=== PATIENT | female | born 1995 | race Caucasian/White ===

== ENCOUNTER 2016-07-13 09:23 | Emergency (ER) ==
[2016-07-13 09:26] VITALS: BP 97/61; TEMP 97.3; BMI 27.4
[2016-07-13] MEDS ORDERED: PHENERGAN TAB PO STA (09:41)
[2016-07-13 09:53] LABS: BILIRUBIN,URINE Negative (NEGATIVE); KETONES,URINE 1+ (NEGATIVE); LEUKOCYTE ESTERASE ,URINE Negative (NEGATIVE); NITRITE,URINE Negative (NEGATIVE); PROTEIN,URINE Negative (NEGATIVE); URINE, BLOOD Negative (NEGATIVE)
[2016-07-13 09:55] LABS: ADD URINE MICROSCOPIC NO; URINE PREGNANCY INTERNAL QC INTERNAL QC VALID
[2016-07-13 09:57] LABS: BASOPHILS % (AUTO) 0.5 % (0.0-3.0); EOSINOPHILS # (AUTO) 0.2 K/ul (0.0-0.7); EOSINOPHILS % (AUTO) 3.2 % (0.0-7.0); HEMATOCRIT 40.1 % (37.0-47.0); HEMOGLOBIN 12.8 g/dl (12.0-16.0); IMMATURE GRANULOCYTE % (AUTO) 0.5 % (0.0-5.0); LYMPHOCYTES # (AUTO) 2.1 K/uL (0.60-3.4); MEAN CORPUSCULAR HEMOGLOBIN 28.4 pg (27.0-31.0); MEAN CORPUSCULAR HGB CONC 31.9 (31.8-35.4); MEAN CORPUSCULAR VOLUME 88.9 fl (81.0-99.0); MONOCYTES # (AUTO) 0.9 K/uL (0.4-2.0); MONOCYTES % (AUTO) 14.3 (0-10); NEUTROPHILS # (AUTO) 2.8 K/ul (2.0-6.9); NEUTROPHILS % (AUTO) 46.5; PLATELET COUNT 252 10^3/uL (140-440); RED BLOOD COUNT 4.51 10^6/ul (4.20-5.40); WHITE BLOOD COUNT 5.94 K/ul (4.6-10.2)
[2016-07-13 10:08] LABS: H. PYLORI ANTIBODY NEGATIVE (NEGATIVE); H.PYLORI INTERNAL QC INTERNAL QC VALID
[2016-07-13 10:16] LABS: ALBUMIN 3.9 g/dL (3.7-5.6); ALBUMIN/GLOBULIN RATIO 1.34; BILIRUBIN,TOTAL 0.28 mg/dL (0.60-1.40); BUN/CREATININE RATIO 13.88; CALCIUM 8.9 mg/dL (8.2-10.2); CREATININE 0.72 mg/dL (0.60-1.30); TOTAL PROTEIN 6.8 g/dL (6.4-8.2)
--- NOTE | 2016-07-13 10:33 | ED.PDOC ---
General ED Provider: Dr. YVROSE LARRY JR Chief Complaint: Nausea/Vomiting Stated Complaint: states has been nauseated and vomiting for 2 weeks. diarrhea x 3. with epigastric abd pain. [ End ]97.3 92 18 97% 97/61 hx vertigo diarrhea aching Time Seen by Physician: 09:35 Mode of Arrival: Walk-In Information Source: Patient Exam Limitations: No limitations Nursing and Triage Documentation Reviewed and Agree: No Review of Systems - Review Of Systems Constitutional: Reports: No symptoms Eyes: Reports: No symptoms Ears, Nose, Mouth, Throat: Reports: No symptoms Respiratory: Reports: No symptoms Cardiac: Reports: No symptoms GI: Reports: Abdominal pain, Diarrhea, Nausea, Vomiting : Reports: No symptoms Musculoskeletal: Reports: No symptoms Skin: Reports: No symptoms Neurological: Reports: No symptoms Endocrine: Reports: No symptoms Hematologic/Lymphatic: Reports: No symptoms All Other Systems: Other Past Medical History - Past Medical History Previously Healthy: Yes Endocrine: Reports: None Cardiovascular: Reports: None Respiratory: Reports: None Hematological: Reports: None Gastrointestinal: Reports: None Genitourinary: Reports: None Neuro/Psych: Reports: None Musculoskeletal: Reports: None Cancer: Reports: None Last Menstrual Period: jun.04 - Surgical History General Surgical History: Reports: None - Family History Family History: Reports: None - Social History Smoking Status: Current some day smoker Hx Substance Use: No Alcohol Screening: None Physical Exam - Physical Exam Appearance: Well-appearing, Obese Pain Distress: Mild Eyes: KATHIA, EOMI, Conjunctiva clear Neck: Supple Respiratory: Airway patent, Breath sounds clear, Breath sounds equal, Respirations nonlabored Cardiovascular: RRR, Pulses normal, No rub, No murmur GI/: Soft, Nontender (no pain elicited), No masses, Bowel sounds normal, No Organomegaly Musculoskeletal: Normal strength, ROM intact, No edema, No calf tenderness Skin: Warm, Dry, Normal color Neurological: Sensation intact, Motor intact, Reflexes intact, Cranial nerves intact, Alert, Oriented Psychiatric: Affect appropriate, Mood appropriate Critical Care Note - Critical Care Note Total Time (mins): 0 Course - Course Hematology/Chemistry: 07/13/16 09:35 07/13/16 09:35 Orders, Labs, Meds: Lab Review 07/13/16 07/13/16 09:35 09:47 WBC 5.94 RBC 4.51 Hgb 12.8 Hct 40.1 MCV 88.9 MCH 28.4 MCHC 31.9 RDW Coeff of Adrianna 13.5 Plt Count 252 Immature Gran % (Auto) 0.5 Neut % (Auto) 46.5 Lymph % (Auto) 35.0 Morrill % (Auto) 14.3 H Eos % (Auto) 3.2 Baso % (Auto) 0.5 Immature Gran # (Auto) 0.0 Neut # 2.8 Lymph # 2.1 Morrill # 0.9 Eos # 0.2 Baso # 0.0 Sodium 139 Potassium 4.0 Chloride 106 Carbon Dioxide 25 Anion Gap 12.0 BUN 10 Creatinine 0.72 Estimated GFR (MDRD) 104.00 BUN/Creatinine Ratio 13.88 Glucose 87 Calcium 8.9 Total Bilirubin 0.28 L AST 24 ALT 20 Alkaline Phosphatase 62 Total Protein 6.8 Albumin 3.9 Globulin 2.9 Albumin/Globulin Ratio 1.34 Amylase 35 Lipase 15 Urine Color Yellow Urine Clarity Clear Urine pH 6.0 Ur Specific [place] >=1.030 Urine Protein Negative Urine Glucose (UA) Negative Urine Ketones 1+ Urine Blood Negative Urine Nitrite Negative Urine Bilirubin Negative Urine Urobilinogen 1.0 Ur Leukocyte Esterase Negative Urine Test Negative H. pylori IgG Antibody Negative Orders Category Date Time Status AMYLASE Stat LAB 07/13/16 09:35 Completed CBC W/ AUTO DIFF Stat LAB 07/13/16 09:35 Completed COMPREHENSIVE METABOLIC PANEL Stat LAB 07/13/16 09:35 Completed H. PYLORI SCREEN Stat LAB 07/13/16 09:35 Completed LIPASE Stat LAB 07/13/16 09:35 Completed URINALYSIS C & S IF INDICATED Stat LAB 07/13/16 09:47 Completed URINE Stat LAB 07/13/16 09:47 Completed Promethazine HCl [Phenergan Tab] MEDS 07/13/16 09:41 Discontinued 25 mg PO ONCE STA Medications Discontinued Medications Generic Name Dose Route Start Last Admin Trade Name Freq PRN Reason Stop Dose Admin Promethazine HCl 25 mg 07/13/16 09:41 07/13/16 10:02 Phenergan Tab PO 07/13/16 09:42 25 mg ONCE STA Administration Vital Signs: Temp Pulse Resp BP Pulse Ox 07/13/16 09:23 97.3 F L 92 H 18 97/61 97 Departure - Departure Time of Disposition: 11:12 Disposition: HOME SELF-CARE Discharge Problem: Gastroenteritis Instructions: Acute Nausea and Vomiting (ED) Condition: Good Pt referred to PMD for follow-up: Yes Additional Instructions: Urine is concentrated but no evidence of dehydration on labs increase clear liquids- to eight to ten 8 ounce cups a day no solids for 12 hours after vomiting phenergan for nausea peptobismol up to 8 doses a day for loose stools return if fever over 101.0 or if not voiding three or more times each day Prescriptions: Promethazine HCl [Phenergan Tab] 25 mg PO QID PRN #12 tablet PRN Reason: Nausea / Vomiting Allergies/Adverse Reactions: Allergies amoxicillin [Amoxicillin] Allergy (Mild, Verified 07/13/16 09:27) nausea red dye Adverse Reaction (Verified 07/13/16 09:27) Home Medications: Ambulatory Orders Promethazine HCl [Phenergan Tab] 25 mg PO QID PRN #12 tablet 07/13/16
== END 2016-07-13 11:53 | disposition home or self-care (01) ==
LOC: ED 09:23
DX: K52.9 Noninfective gastroenteritis and colitis, unspecified (principal); F17.210 Nicotine dependence, cigarettes, uncomplicated
CPT/HCPCS: 36415; 80053; 81001; 81025; 82150; 83690; 85025; 86677; 99283

== ENCOUNTER 2016-08-22 11:54 | Emergency (ER) ==
[2016-08-22 11:55] VITALS: BMI 27.4
[2016-08-22 12:00] VITALS: BP 138/71; TEMP 98.4
--- NOTE | 2016-08-22 12:58 | ED.PDOC ---
General ED Provider: Dr. YVROSE LARRY JR Chief Complaint: Bite Stated Complaint: bite her last night back of left thigh. reached back and hit the area and looked hand a mosquito. has bruised.[End]98.4 91 20 98 138/71 01/08 Time Seen by Physician: 13:00 Mode of Arrival: Walk-In Information Source: Patient Exam Limitations: No limitations Nursing and Triage Documentation Reviewed and Agree: No Review of Systems - Review Of Systems Constitutional: Reports: No symptoms Eyes: Reports: No symptoms Ears, Nose, Mouth, Throat: Reports: No symptoms Respiratory: Reports: No symptoms Cardiac: Reports: No symptoms GI: Reports: No symptoms : Reports: No symptoms Musculoskeletal: Reports: No symptoms Skin: Reports: Bruising Neurological: Reports: Other (VERTIGO) Endocrine: Reports: No symptoms Hematologic/Lymphatic: Reports: No symptoms All Other Systems: Other Past Medical History - Past Medical History Previously Healthy: Yes Endocrine: Reports: None Cardiovascular: Reports: None Respiratory: Reports: None Hematological: Reports: None Gastrointestinal: Reports: None Genitourinary: Reports: None Neuro/Psych: Reports: None Musculoskeletal: Reports: None Cancer: Reports: None Last Menstrual Period: 1 week late - Surgical History General Surgical History: Reports: None - Family History Family History: Reports: None - Social History Smoking Status: Current some day smoker Hx Substance Use: No Alcohol Screening: None Physical Exam - Physical Exam Appearance: Well-appearing Pain Distress: Mild Neck: Supple Respiratory: Airway patent Skin: Normal color (2x8cm target lesion consitent with venoud injury slightly tender) Neurological: Sensation intact, Motor intact, Reflexes intact, Cranial nerves intact, Alert, Oriented Critical Care Note - Critical Care Note Total Time (mins): 0 Course - Course Vital Signs: Temp Pulse Resp BP Pulse Ox 08/22/16 11:55 98.4 F 91 H 20 138/71 98 Departure - Departure Time of Disposition: 12:56 Disposition: HOME SELF-CARE Discharge Problem: Insect bite (nonvenomous), left thigh, initial encounter Instructions: Insect Bite or Sting (ED), Contusion in Adults (ED) Condition: Good Pt referred to PMD for follow-up: Yes Additional Instructions: unusual injury should heal without problems recheck if fever , increasing swelling over two days drainage or redness(signs of infection) may use ice may use Tylenol for pain avid NSAIDS pressure to area from cloth roll willl help Allergies/Adverse Reactions: Allergies amoxicillin [Amoxicillin] Allergy (Mild, Verified 08/22/16 11:59) nausea red dye Adverse Reaction (Verified 08/22/16 11:59) Home Medications: Ambulatory Orders 1 [No Reported Medications] 08/22/16
== END 2016-08-22 13:20 | disposition home or self-care (01) ==
LOC: ED 11:54
DX: S70.362A Insect bite (nonvenomous), left thigh, initial encounter (principal); S70.12XA Contusion of left thigh, initial encounter; W57.XXXA Bitten or stung by nonvenomous insect and other nonvenomous arthropods, initial encounter; F17.210 Nicotine dependence, cigarettes, uncomplicated
CPT/HCPCS: 99282

== ENCOUNTER 2016-08-23 01:09 | Emergency (ER) ==
[2016-08-23 01:10] VITALS: BMI 27.4
[2016-08-23 01:20] VITALS: BP 118/75; TEMP 98.4
[2016-08-23] MEDS ORDERED: BACTRIM DS 800/160 MG PO STA (01:38)
[2016-08-23] MEDS ORDERED: MOTRIN PO STA (01:38)
--- NOTE | 2016-08-23 01:38 | ED.PDOC ---
General ED Provider: Dr. NEYDA MONTIEL Chief Complaint: Bite Stated Complaint: Patient noted a small bruzie / insect bite this morning. was seen in the ER apparently has enlarged. now worried about it. Has some pain and has not taken anything for the pain. Time Seen by Physician: 01:35 Mode of Arrival: Walk-In Information Source: Patient Exam Limitations: No limitations Seen Within Last 72 Hours for Same Complaint By: ED Nursing and Triage Documentation Reviewed and Agree: Yes Skin Complaint Exam - Skin Rash/Itching Complaint/Exam Onset/Duration: 1 day Symptoms Are: Still present Location: Left inner thigh Potential Exposures: Reports: Unknown Prior Treatment: none Aggravating: Reports: None Alleviating: Reports: None Skin Findings: Present: Normal findings Body Picture: 1 - 5 cm diabeter slightly raised Bruize. Differential Diagnoses: Contact Dermatitis, Other (insect bite ) Review of Systems - Review Of Systems Constitutional: Reports: No symptoms Eyes: Reports: No symptoms Ears, Nose, Mouth, Throat: Reports: No symptoms Respiratory: Reports: No symptoms Cardiac: Reports: No symptoms GI: Reports: No symptoms : Reports: No symptoms Musculoskeletal: Reports: No symptoms Skin: Reports: Lesions, Rash Neurological: Reports: Anxiety Endocrine: Reports: No symptoms Hematologic/Lymphatic: Reports: No symptoms All Other Systems: Reviewed and Negative Past Medical History - Past Medical History Previously Healthy: Yes Endocrine: Reports: None Cardiovascular: Reports: None Respiratory: Reports: None Hematological: Reports: None Gastrointestinal: Reports: None Genitourinary: Reports: None Neuro/Psych: Reports: None Musculoskeletal: Reports: None Cancer: Reports: None Last Menstrual Period: FIRST WEEK OF JULY, IS LATE - Surgical History General Surgical History: Reports: None - Family History Family History: Reports: None - Social History Smoking Status: Current some day smoker Hx Substance Use: No Alcohol Screening: Occasionally - Immunizations Tetanus Shot up to Date: Yes Physical Exam - Physical Exam Appearance: Ill-appearing Pain Distress: Mild Eyes: KATHIA, EOMI, Conjunctiva clear Neck: Supple Respiratory: Airway patent, Breath sounds clear, Breath sounds equal, Respirations nonlabored Cardiovascular: RRR, Pulses normal, No rub, No murmur GI/: Soft, Nontender, No masses, Bowel sounds normal, No Organomegaly Musculoskeletal: Normal strength, ROM intact, No edema, No calf tenderness Skin: Warm, Dry Neurological: Sensation intact, Motor intact, Reflexes intact, Cranial nerves intact, Alert, Oriented Psychiatric: Anxious Critical Care Note - Critical Care Note Total Time (mins): 0 Course - Course Vital Signs: Temp Pulse Resp BP Pulse Ox 08/23/16 01:11 98.4 F 100 H 18 118/75 99 Departure - Departure Time of Disposition: 01:55 Disposition: HOME SELF-CARE Discharge Problem: Insect bite Qualifiers: Encounter type: initial encounter Qualifier Code: (W57.XXXA) Bitten or stung by nonvenomous insect and other nonvenomous arthropods, initial encounter Instructions: Insect Bite or Sting (ED) Condition: Fair Pt referred to PMD for follow-up: Yes (3 days ) Additional Instructions: take medications as prescribed. Follow up with PCP in 3 days Prescriptions: Ibuprofen [Motrin] 600 mg PO Q6H PRN #30 tablet PRN Reason: Analgesia Sulfamethoxazole/Trimethoprim [Bactrim Ds Tablet] 1 each PO BID #20 tablet Allergies/Adverse Reactions: Allergies amoxicillin [Amoxicillin] Allergy (Mild, Verified 08/23/16 01:21) nausea red dye Adverse Reaction (Verified 08/23/16 01:21) Home Medications: Ambulatory Orders Ibuprofen [Motrin] 600 mg PO Q6H PRN #30 tablet 08/23/16 Sulfamethoxazole/Trimethoprim [Bactrim Ds Tablet] 1 each PO BID #20 tablet 08/23 Disposition Discussed With: Patient, Family
== END 2016-08-23 01:52 | disposition home or self-care (01) ==
LOC: ED 01:09
DX: S70.362D Insect bite (nonvenomous), left thigh, subsequent encounter (principal); S70.12XD Contusion of left thigh, subsequent encounter; W57.XXXD Bitten or stung by nonvenomous insect and other nonvenomous arthropods, subsequent encounter; F17.210 Nicotine dependence, cigarettes, uncomplicated
CPT/HCPCS: 99282

== ENCOUNTER 2017-10-09 02:50 | Emergency (ER) ==
[2017-10-09 02:59] VITALS: BP 112/73; TEMP 97.5; BMI 29.9
--- NOTE | 2017-10-09 03:11 | ED.PDOC ---
General ED Provider: Dr. SAVANNAH KERN-ER Chief Complaint: Cough Stated Complaint: arnaldo got sinus congestion and cough Time Seen by Physician: 03:00 Mode of Arrival: Walk-In Information Source: Patient Exam Limitations: No limitations Nursing and Triage Documentation Reviewed and Agree: Yes Reviewed sepsis parameters & appropriate labs ordered?: Yes System Inflammatory Response Syndrome: Not Applicable Sepsis Protocol: For patient's 13 years and over: Temp is 96.8 and below OR 101 and greater Pulse >90 BPM Resp >20/minute Acutely Altered Mental Status Are patient's symptoms suggestive of a new infection, such as: -Pneumonia -Skin, Soft Tissue -Endocarditis -UTI -Bone, Joint Infection -Implantable Device -Acute Abdominal Infection -Wound Infection -Meningitis -Blood Stream Catheter Infection -Unknown Respiratory Complaint Exam - Respiratory Complaint/Exam Onset/Duration: 3 weeks Symptoms Are: Still present Timing: Constant Initial Severity: Mild Current Severity: Mild Location: Nose, Chest Character: Reports: Productive cough Aggravating: Reports: URI Alleviating: Reports: None Associated Signs and Symptoms: Reports: URI, Nasal congestion, Sinus discomfort. Denies: Rapid breathing, Dyspnea, Fever, Chills, Chest pain, Pleuritic chest pain, Wheezing, Hemoptysis, Dizziness, Calf pain, Calf swelling , Edema, Hoarseness, Vomiting, Sore throat, Weight loss, Decreased oral intake, Increased thirst, Increased appetite, Increased urination History of Healthcare-Acquired Pneumonia: No Home Oxygen Use: No Recent Stress Test: No Recent Echo/LV Function: No Current Antibiotic Use: No Current Asthma Medication Use: No Respiratory Distress: None Inadequate Respiratory Effort: No Dysphagia Present: No Stridor Present: No JVD Present: No Accessory Muscle Use: No Retractions: Not Present Diminished Breath Sounds: No Prolonged Respiration: Inspiratory phase Grunting Respirations: No Kussmaul Respirations: No Differential Diagnoses: Bronchitis, Sinusitis Review of Systems - Review Of Systems Constitutional: Reports: No symptoms Eyes: Reports: No symptoms Ears, Nose, Mouth, Throat: Reports: Nose discharge Respiratory: Reports: Cough Cardiac: Reports: No symptoms GI: Reports: No symptoms : Reports: No symptoms Musculoskeletal: Reports: No symptoms Skin: Reports: No symptoms Neurological: Reports: No symptoms Endocrine: Reports: No symptoms Hematologic/Lymphatic: Reports: No symptoms All Other Systems: Reviewed and Negative Past Medical History - Past Medical History Previously Healthy: Yes Endocrine: Reports: None Cardiovascular: Reports: None Respiratory: Reports: None Hematological: Reports: None Gastrointestinal: Reports: None Genitourinary: Reports: None Neuro/Psych: Reports: None Musculoskeletal: Reports: None Cancer: Reports: None Last Menstrual Period: 09/07/17 - Surgical History General Surgical History: Reports: None - Family History Family History: Reports: None - Social History Smoking Status: Current some day smoker, Light tobacco smoker Hx Substance Use: No Alcohol Screening: Occasionally - Immunizations Tetanus Shot up to Date: Yes Physical Exam - Physical Exam Appearance: Well-appearing, No pain distress, Well-nourished Eyes: KATHIA ENT: Rhinorrhea Neck: Supple Respiratory: Crackles, Rhonchi Cardiovascular: RRR, Pulses normal, No rub, No murmur GI/: Soft Musculoskeletal: Normal strength Skin: Warm, Dry, Normal color Neurological: Sensation intact, Motor intact, Reflexes intact, Cranial nerves intact, Alert, Oriented Psychiatric: Affect appropriate, Mood appropriate Critical Care Note - Critical Care Note Total Time (mins): 0 Course - Course Orders, Labs, Meds: Orders Category Date Time Status CXR [CHEST, 2 VIEWS PA & LAT] Stat RADS 10/09/17 03:04 Stop Req Vital Signs: Temp Pulse Resp BP Pulse Ox 10/09/17 02:52 97.5 F L 82 20 112/73 98 Departure - Departure Time of Disposition: 03:11 Disposition: HOME SELF-CARE Discharge Problem: Bronchitis Sinusitis Qualifiers: Sinusitis location: unspecified location Chronicity: acute Recurrence: non- recurrent Qualified Code(s): J01.90 - Acute sinusitis, unspecified Instructions: Rhinosinusitis (ED) Condition: Good Pt referred to PMD for follow-up: Yes IPMP verified?: No Additional Instructions: biaxin 500mg bid x 14 days==-medrol dose pack--robitussin ac 1 tsp q 4hrs prn cough 150cc nr--f/u with pcp Allergies/Adverse Reactions: Allergies amoxicillin [Amoxicillin] Allergy (Mild, Verified 08/23/16 01:21) nausea red dye Adverse Reaction (Verified 08/23/16 01:21) Home Medications: Ambulatory Orders 1 [No Reported Medications] 10/09/17 Disposition Discussed With: Patient, Family
== END 2017-10-09 03:20 | disposition home or self-care (01) ==
LOC: ED 02:50
DX: J40 Bronchitis, not specified as acute or chronic (principal); J01.90 Acute sinusitis, unspecified; F17.210 Nicotine dependence, cigarettes, uncomplicated
CPT/HCPCS: 99282

== ENCOUNTER 2017-12-05 14:08 | Emergency (ER) ==
[2017-12-05 14:25] VITALS: BP 114/80; TEMP 98.7; BMI 30.2
--- NOTE | 2017-12-05 15:51 | DI ---
EXAM: Radiographs, right ankle HISTORY: Initial presentation for right ankle trauma. COMPARISON: None available. TECHNIQUE: Three views. FINDINGS: Bone mineralization is normal. There is no fracture or dislocation. The joint spaces are maintained. Small retrocalcaneal spur noted. No focal soft tissue abnormality is seen. IMPRESSION: No fracture or dislocation.
--- NOTE | 2017-12-05 15:52 | DI ---
EXAM: Right foot three views HISTORY: Pain, injury COMPARISON: None FINDINGS: The bones are normal. The joints are normal. No focal soft tissue abnormality. IMPERSSION: Normal examination.
--- NOTE | 2017-12-05 16:01 | ED.PDOC ---
General ED Provider: Dr. JULIA ANTHONY Chief Complaint: Ankle Pain/Injury Stated Complaint: ANKLE, FOOT PAIN Time Seen by Physician: 14:17 Mode of Arrival: Walk-In Information Source: Patient Exam Limitations: No limitations Nursing and Triage Documentation Reviewed and Agree: Yes Reviewed sepsis parameters & appropriate labs ordered?: Yes System Inflammatory Response Syndrome: Not Applicable Sepsis Protocol: For patient's 13 years and over: Temp is 96.8 and below OR 101 and greater Pulse >90 BPM Resp >20/minute Acutely Altered Mental Status Are patient's symptoms suggestive of a new infection, such as: -Pneumonia -Skin, Soft Tissue -Endocarditis -UTI -Bone, Joint Infection -Implantable Device -Acute Abdominal Infection -Wound Infection -Meningitis -Blood Stream Catheter Infection -Unknown Musculoskeletal Complaint Exam - Ankle/Foot Complaint/Exam Location of Injury: Reports: Right, Ankle, Foot Mechanism of Injury: Reports: Trauma Onset/Duration: 1 DAY Symptoms Are: Reports: Still present Onset of Pain: Reports: Immediate Initial Severity: Moderate Current Severity: Mild Location: Reports: Discrete Character: Reports: Aching Alleviating: Reports: Rest, Position Aggravating: Reports: Movement Able to Bear Weight: Yes Associated Signs and Symptoms: Denies: Swelling, Redness, Bruising, Fever, Weakness, Numbness, Tingling Gout Risk Factors: Reports: None Related Surgical History: Reports: None Achilles Tendon Abnormality: No Differential Diagnosis: Sprain (ABRASION ANKLE), Strain Review of Systems - Review Of Systems Constitutional: Reports: No symptoms Eyes: Reports: No symptoms Ears, Nose, Mouth, Throat: Reports: No symptoms Respiratory: Reports: No symptoms Cardiac: Reports: No symptoms GI: Reports: No symptoms : Reports: No symptoms Musculoskeletal: Reports: Joint pain (ANKLE) Skin: Reports: Other (ABRASION RIGHT ANKLE ) Neurological: Reports: No symptoms Endocrine: Reports: No symptoms Hematologic/Lymphatic: Reports: No symptoms All Other Systems: Reviewed and Negative Past Medical History - Past Medical History Previously Healthy: Yes Endocrine: Reports: None Cardiovascular: Reports: None Respiratory: Reports: None Hematological: Reports: None Gastrointestinal: Reports: None Genitourinary: Reports: None Neuro/Psych: Reports: None Musculoskeletal: Reports: None Cancer: Reports: None Last Menstrual Period: November 13 - Surgical History General Surgical History: Reports: None - Family History Family History: Reports: None - Social History Smoking Status: Current every day smoker Hx Substance Use: No Alcohol Screening: None - Immunizations Tetanus Shot up to Date: Yes Physical Exam - Physical Exam Appearance: Well-appearing, No pain distress, Well-nourished Eyes: KATHIA, EOMI, Conjunctiva clear ENT: Ears normal, Nose normal, Oropharynx normal Respiratory: Airway patent, Breath sounds clear, Breath sounds equal, Respirations nonlabored Cardiovascular: RRR, Pulses normal, No rub, No murmur GI/: Soft, Nontender, No masses, Bowel sounds normal, No Organomegaly Musculoskeletal: Normal strength, ROM intact, No edema, No calf tenderness Skin: Warm, Dry (ABRASION RIGHT ANKLE) Neurological: Sensation intact, Motor intact, Reflexes intact, Cranial nerves intact, Alert, Oriented Psychiatric: Affect appropriate, Mood appropriate Interpretation - Radiology Interpretation Radiology Interpretation By: Radiologist Radiology Results: No acute changes Critical Care Note - Critical Care Note Total Time (mins): 0 Course - Course Orders, Labs, Meds: Orders Category Date Time Status ANKLE, RIGHT MIN 3 VIEWS Stat RADS 12/05/17 15:27 Completed FOOT, RIGHT 3 VIEWS Stat RADS 12/05/17 15:27 Completed Vital Signs: Temp Pulse Resp BP Pulse Ox 12/05/17 14:19 98.7 F 82 16 114/80 99 Departure - Departure Time of Disposition: 16:01 Disposition: HOME SELF-CARE Discharge Problem: Ankle pain Instructions: Ankle Sprain (ED), Ankle Sprain (DC) Condition: Good Pt referred to PMD for follow-up: Yes IPMP verified?: No Allergies/Adverse Reactions: Allergies amoxicillin [Amoxicillin] Allergy (Mild, Verified 12/05/17 14:18) nausea red dye Adverse Reaction (Verified 12/05/17 14:18) Home Medications: Ambulatory Orders 1 [No Reported Medications] 10/09/17
== END 2017-12-05 16:05 | disposition home or self-care (01) ==
LOC: ED 14:08
DX: S93.401A Sprain of unspecified ligament of right ankle, initial encounter (principal); S90.511A Abrasion, right ankle, initial encounter; F17.210 Nicotine dependence, cigarettes, uncomplicated
CPT/HCPCS: 99283

== ENCOUNTER 2018-09-07 11:51 | Emergency (ER) ==
[2018-09-07 11:59] VITALS: BP 123/76; TEMP 98.3; BMI 28.8
--- NOTE | 2018-09-07 13:39 | ED.PDOC ---
General ED Provider: Dr. JULIA ANTHONY Chief Complaint: Stated Complaint: INTERESTED TO HAVE A TEST NO OTHER ISSUES OR CONCERS OFFERED Time Seen by Physician: 12:00 Mode of Arrival: Walk-In Information Source: Patient Exam Limitations: No limitations Nursing and Triage Documentation Reviewed and Agree: Yes Does patient meet sepsis criteria?: No System Inflammatory Response Syndrome: Not Applicable Sepsis Protocol: For patient's 13 years and over: Temp is 96.8 and below OR 101 and greater Pulse >90 BPM Resp >20/minute Acutely Altered Mental Status Are patient's symptoms suggestive of a new infection, such as: -Pneumonia -Skin, Soft Tissue -Endocarditis -UTI -Bone, Joint Infection -Implantable Device -Acute Abdominal Infection -Wound Infection -Meningitis -Blood Stream Catheter Infection -Unknown Complaint Exam - Complaint/Exam Onset/Duration: TODAY Current Severity: None Location of Pain: Reports: None Aggravating: Reports: None Alleviating: Reports: None Associated Signs and Symptoms: Denies: Diaphoresis, Back pain, Fever, Hematuria , Dysuria, Constipation, Blood in stool, Rectal pain, Appetite change, Nausea, Vomiting, Decreased urine output, Increased urine frequency, Increased thirst, Decreased activity, Lethargy, Abdominal Pain, Bubble bath use, Vaginal bleeding , Vaginal discharge, Genital swelling, Genital blisters, Retained foreign body Ectopic Risk Factors: Reports: None Ovarian Torsion Risk Factors: Reports: None Surgical Obstruction Risk Factors: Reports: None RH Status: Unknown Related Surgical History: Reports: None Differential Diagnoses: Other Review of Systems - Review Of Systems Constitutional: Reports: No symptoms Eyes: Reports: No symptoms Ears, Nose, Mouth, Throat: Reports: No symptoms Respiratory: Reports: No symptoms Cardiac: Reports: No symptoms GI: Reports: No symptoms : Reports: No symptoms Musculoskeletal: Reports: No symptoms Skin: Reports: No symptoms Neurological: Reports: No symptoms Endocrine: Reports: No symptoms Hematologic/Lymphatic: Reports: No symptoms All Other Systems: Reviewed and Negative Past Medical History - Past Medical History Previously Healthy: Yes Endocrine: Reports: None Cardiovascular: Reports: None Respiratory: Reports: None Hematological: Reports: None Gastrointestinal: Reports: None Genitourinary: Reports: None Neuro/Psych: Reports: None Musculoskeletal: Reports: None Cancer: Reports: None Last Menstrual Period: 07/22/2018 - Surgical History General Surgical History: Reports: None - Family History Family History: Reports: None - Social History Smoking Status: Current some day smoker Hx Substance Use: No Alcohol Screening: Occasionally - Immunizations Tetanus Shot up to Date: Yes Physical Exam - Physical Exam Appearance: Well-appearing, No pain distress, Well-nourished Eyes: KATHIA, EOMI, Conjunctiva clear ENT: Ears normal, Nose normal, Oropharynx normal Respiratory: Airway patent, Breath sounds clear, Breath sounds equal, Respirations nonlabored Cardiovascular: RRR, Pulses normal, No rub, No murmur GI/: Soft, Nontender, No masses, Bowel sounds normal, No Organomegaly Musculoskeletal: Normal strength, ROM intact, No edema, No calf tenderness Skin: Warm, Dry, Normal color Neurological: Sensation intact, Motor intact, Reflexes intact, Cranial nerves intact, Alert, Oriented Psychiatric: Affect appropriate, Mood appropriate Critical Care Note - Critical Care Note Total Time (mins): 0 Course - Course Orders, Labs, Meds: Lab Review 09/07/18 12:23 Serum , Qual Negative Orders Category Date Time Status HCG,QUANTITATIVE Stat LAB 09/07/18 12:23 Received SERUM Stat LAB 09/07/18 12:23 Completed Vital Signs: Temp Pulse Resp BP Pulse Ox 09/07/18 11:52 98.3 F 80 16 123/76 98 Departure - Departure Time of Disposition: 13:38 Disposition: HOME SELF-CARE Discharge Problem: Normal exam Instructions: Normal Exam (ED) Condition: Good Pt referred to PMD for follow-up: Yes IPMP verified?: No Additional Instructions: Please call your Family Physician as soon as possible to schedule a follow-up appointment. you are not Allergies/Adverse Reactions: Allergies amoxicillin [Amoxicillin] Allergy (Mild, Verified 12/05/17 14:18) nausea red dye Adverse Reaction (Verified 12/05/17 14:18) Home Medications: Ambulatory Orders 1 [No Reported Medications] 10/09/17
== END 2018-09-07 13:42 | disposition home or self-care (01) ==
LOC: ED 11:51
DX: Z32.02 Encounter for pregnancy test, result negative (principal); F17.210 Nicotine dependence, cigarettes, uncomplicated
CPT/HCPCS: 36415; 84702; 84703; 99282